=== PATIENT | female | born 1990 | race Caucasian/White ===

== ENCOUNTER 2023-05-22 04:12 | Inpatient (IN) | payer OTHER ==
[2023-05-19 15:54] VITALS: BMI 31.2
[2023-05-22] MEDS ORDERED: ceFAZolin SODIUM 1 GM VIAL ONE ×2 (08:24→08:51)
[2023-05-22] MEDS ORDERED: PHENAZOPYRIDINE HCL 100 MG TABLET (FP) ONE (08:31)
[2023-05-22] MEDS: GABAPENTIN 300 MG CAPSULE ONE (08:39)
[2023-05-22] MEDS ORDERED: ACETAMINOPHEN INJECTION 100 ML IVPB ONE (08:46)
[2023-05-22] MEDS ORDERED: SODIUM CHLORIDE 0.9% P/F 10 ML VIAL IJ ONE ×3 (08:51→09:19)
[2023-05-22] MEDS ORDERED: LIDOCAINE HCL/PF 2% SDV 5ML VIAL ONE ×2 (08:51→11:32)
[2023-05-22] MEDS ORDERED: ePHEDrine SULFATE 50 MG/1 ML AMPULE ONE (08:51)
[2023-05-22] MEDS ORDERED: ONDANSETRON 4 MG/2 ML VIAL ONE ×2 (08:55→09:16)
[2023-05-22] MEDS ORDERED: PROPOFOL 40 ML ONE (08:56)
[2023-05-22] MEDS ORDERED: MIDAZOLAM HCL 2 MG/2 ML SINGLE DOSE VIAL ONE (08:58)
[2023-05-22] MEDS ORDERED: ROCURONIUM BROMIDE 50 MG/5 ML SYRINGE ONE (09:04)
[2023-05-22] MEDS ORDERED: DEXAMETHASONE SOD PHOSPHATE 4 MG/1 ML VIAL ONE (09:16)
[2023-05-22] MEDS ORDERED: GLYCOPYRROLATE 0.2 MG/1 ML VIAL ONE (09:16)
[2023-05-22] MEDS ORDERED: KETOROLAC TROMETHAMINE 30 MG/1 ML VIAL ONE (09:16)
[2023-05-22] MEDS ORDERED: ONDANSETRON 4 MG/2 ML VIAL IVPUSH PRN ×2 (09:45→12:06)
[2023-05-22] MEDS ORDERED: PHENAZOPYRIDINE HCL 100 MG TABLET (FP) PO ONE (10:03)
[2023-05-22] MEDS ORDERED: GABAPENTIN 300 MG CAPSULE PO ONE (10:03)
[2023-05-22] MEDS ORDERED: ACETAMINOPHEN 1000 MG/100 ML BAG IVPB ONE (10:03)
[2023-05-22] MEDS ORDERED: TRANEXAMIC ACID 1000 MG/10 ML VIAL IVPUSH ONE (10:03)
[2023-05-22] MEDS: ceFAZolin SODIUM 1 GM VIAL IVPB ONE (10:25)
[2023-05-22] MEDS ORDERED: HYDROmorphone HCl 2 MG/ML VIAL ONE (10:26)
[2023-05-22] MEDS ORDERED: MAGNESIUM SULF 50% (8.12 MEQ/2 ML-1 GM VIAL) ONE (10:26)
[2023-05-22] MEDS ORDERED: KETAMINE HCL 200 MG/20 ML VIAL ONE (10:26)
[2023-05-22] MEDS ORDERED: SUCCINYLCHOLINE CHLORIDE 200 MG/10 ML SYRINGE ONE (11:16)
[2023-05-22] MEDS ORDERED: SUGAMMADEX SODIUM 200 MG/2 ML VIAL ONE (11:18)
[2023-05-22] MEDS ORDERED: oxyCODONE HCL 5 MG TABLET PO PRN (12:06)
[2023-05-22] MEDS ORDERED: BISACODYL 5 MG TABLET.DR (FP) PO PRN (12:06)
[2023-05-22] MEDS: LACTATED RINGERS SOLUTION 1,000 ML IV SCH (14:54)
[2023-05-22] MEDS: BUPIVACAINE 0.5% /EPI 1:200,000 10 ML VIAL IJ ONE (14:55)
[2023-05-22 21:24] VITALS: RESP 18
[2023-05-22] MEDS: SIMETHICONE 80 MG TAB.CHEW (FP) PO PRN (21:33)
[2023-05-22] MEDS: DOCUSATE SODIUM 100 MG CAPSULE (FP) PO PRN (21:33)
[2023-05-22] MEDS: IBUPROFEN 800 MG/8 ML IJ IVPB PRN (21:34)
[2023-05-23 08:16] LABS: INR 1.15 (0.83-1.09); PROTHROMBIN TIME (PATIENT) 13.3 SEC (9.7-13.0)
[2023-05-23 08:17] LABS: ACTIVATED PTT 29.1 SECONDS (25.2-36.5)
[2023-05-23 08:22] LABS: POTASSIUM 4.3 mmol/L (3.5-5.1)
[2023-05-23 08:25] LABS: BLOOD UREA NITROGEN 12.4 mg/dL (7-18); CALCIUM 9.1 mg/dL (8.5-10.1)
[2023-05-23 08:26] LABS: BASO % 0.1 % (0-2.0); HEMATOCRIT 37.1 % (32.4-45.2); HEMOGLOBIN 11.8 GM/dL (10.7-15.3); LYMPH % 14.7 % (8-40); MAGNESIUM 2.1 mg/dL (1.8-2.4); MCH 27.9 pg (25.7-33.7); MCHC 31.8 g/dl (32.0-36.0); MEAN CELL VOLUME 87.7 fl (80-96); MEAN PLT VOLUME 8.6 fl (7.5-11.1); MONO % 5.7 % (3.8-10.2); NEUT % 79.5 % (42.8-82.8); PLATELET COUNT 288 10^3/uL (134-434); RBC 4.23 M/mm3 (3.60-5.2); RDW 15.1 % (11.6-15.6)
[2023-05-23 08:28] LABS: CREATININE 0.6 mg/dL (0.55-1.3)
[2023-05-23 08:30] LABS: BILIRUBIN,TOTAL 0.3 mg/dL (0.2-1); TOT PROT 6.8 g/dl (6.4-8.2)
[2023-05-23 08:33] VITALS: BP 112/74; PULSE 104; TEMP 98.3
[2023-05-23] MEDS: ACETAMINOPHEN 325 MG TABLET (FP) PO PRN (10:00)
[2023-05-23] MEDS: ENOXAPARIN NA (PORCINE) 40 MG/0.4 ML DISP.SYRIN SQ SCH (10:02)
== END 2023-05-23 12:12 | disposition home or self-care (01) | DRG 519 ==
LOC: J2C 04:12 → EDSTATUS 14:30 → J3W 14:32
PROVIDERS: ADMIT Obstetrics & Gynecology Gynecologic Oncology
PROC: 0UB90ZZ Excision of Uterus, Open Approach (ICD-10-PCS; principal; 2023-05-22 10:00)
DX: D25.9 Leiomyoma of uterus, unspecified (principal); N92.0 Excessive and frequent menstruation with regular cycle; D64.9 Anemia, unspecified
CPT/HCPCS: 36415; 80053; 81025; 83735; 84100; 85025; 85610; 85730; 86850; 86900; 86901; 88305-TC; 94760; J0131